=== PATIENT | male | born 1930 | race Caucasian/White ===

== ENCOUNTER 2016-11-14 13:09 | Observation (INO) | payer MEDICARE, OTHER ==
[2016-11-10 14:56] LABS: HEMATOCRIT 44.8 % (40.0-51.0); HEMOGLOBIN 14.8 g/dL (13.6-17.8)
[2016-11-10 15:14] LABS: CALCIUM, SERUM 8.8 MG/DL (8.5-10.4); CHLORIDE, SERUM 101 MMOL/L (96-112); CREATININE 1.21 MG/DL (0.70-1.30); GFR AFRICAN AMERICAN 63 ML/MIN (>=60); GFR NON AFRICAN AMERICAN 55 ML/MIN (>=60); GLUCOSE, SERUM 112 MG/DL (60-99); POTASSIUM, SERUM 4.8 MMOL/L (3.5-5.3); SODIUM, SERUM 141 MMOL/L (135-148)
[2016-11-10 15:15] LABS: BUN (BLOOD UREA NITROGEN) 31 MG/DL (6-23); CO2 (CARBON DIOXIDE) 35 MMOL/L (24-34)
--- NOTE | ~2016-11-14 | OP ---
Record Of Operation [facility] [address] [place]. [address] NAME: LORETTA MAY : 34 STATUS : DIS Halima PAT#: [id number] AGE: 86 ADM/REG DATE : 11/14/16 MR#: [id number] REPORT SERV DATE: 12/03/16 DICTATED BY: TARIQ MARCH DATE: 12/02/16 REPORT STATUS : Draft TRANSCRIBED BY: MODIván DATE: 12/02/16 DATE OF PROCEDURE: 11/14/2016 PREOPERATIVE DIAGNOSES: 1. High-grade right internal carotid artery obstruction. 2. 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 POSTOPERATIVE DIAGNOSIS: 1. 60% to 70% stenosis of the right internal carotid artery. 2. 95% stenosis of the left renal artery. PROCEDURE PERFORMED: 1. Arch aortogram with selective catheterization of the right common carotid artery with cervical carotid angiography. 2. Bilateral renal artery catheterization with arteriography. 3. Left renal artery angioplasty stent reconstruction with a 5 x 16 iCAST stent. SURGEON: Tariq March M.D. ANESTHESIA: Local MAC. COMPLICATIONS: None. INDICATION FOR PROCEDURE: Secondary to this very pleasant 86-year-old gentleman presenting with evidence of a high-grade right internal carotid artery obstruction with known significant cardiac history. Recommendations were made for carotid angiogram to help further define his carotid disease, potential for endovascular repair if found to be feasible. In addition, the patient had difficulties with significant hypertension. Recommendations were made for evaluation of the left renal artery secondary to critical disease. Consent was given. DETAILS OF PROCEDURE: The patient was brought to the endovascular operating room, placed in supine position, prepped and draped routine sterile fashion to the bilateral groin region. The right femoral artery was cannulated with a micropuncture needle followed by a wire and a sheath. Arteriogram was then placed. A universal flush catheter was advanced all the way to the arch of the aorta and 35- to 40-degree KOSTA arch arteriogram was then performed showing evidence of widely patent innominate left common carotid artery and left subclavian. The innominate was then cannulated with a Glidewire in the catheter. This was severe tortuosity and then with significant difficulty the catheter was then advanced to the common carotid artery. Arteriogram demonstrated a 60% to 70% stenosis of the right internal carotid artery region. Imaging was moderate to poor. Secondary to this, it was not possible for endovascular reconstruction secondary to technical concerns. Wires, catheters, and sheaths were then removed from the arch, and then a 6 x 45 sheath was then advanced over the wire to the renal and mesenteric level. The renal arteries were then interrogated and cannulated. The right renal arteries had zero blockage. The left had evidence of 95% obstruction, and a wire was then placed followed by a 4 x 2 angioplasty balloon. The stent Record Of [address] [address] NAME: LORETTA MAY : 34 STATUS : DIS Halima PAT#: [id number] AGE: 86 ADM/REG DATE : 11/14/16 MR#: [id number] REPORT SERV DATE: 12/03/16 DICTATED BY: TARIQ MARCH DATE: 12/02/16 REPORT STATUS : Draft TRANSCRIBED BY: MODL DATE: 12/02/16 was then passed into position and a 5 x 16 iCAST stent was deployed reconstructing the left renal artery. This completed, wires, catheters, and sheaths were then removed. The right groin was closed with Angio-Seal. The patient tolerated the procedure well. CL/MODL Tariq March M.D. / [id number] CC: Calvin Joshua
[~2016-11-14 13:09] MED LIST: ADVIL PO; ASAB PO; BETAPACE80 PO; C25 PO; C5 PO; CATPATCH1 TOP; COREG25 PO; DIOV160 PO; EXFORGE1 TA2 PO; FISH-EPA1000 MG PO; HARD NAILS PO; ISOSORB DIN30 MG PO; JANTOVEN2.5 MG PO; JANTOVEN5 MG PO; KLOR-CON M2020 MEQ PO; L20 PO; MEVACOR PO; NEUR100 PO; NORV5 PO; PRILO PO; PRILOSEC40 MG PO; PROSCAR5 PO; SLOW FE160 MG PO; T PO; TEKTUR150 PO; TENEX1 PO; TENEX2 MG PO; TRAZ50 PO; TRICOR145 PO; VITAMIN B-121000 MC1 SL; VOLTAREN1 % TOP; ZEBETA5 PO; ZESTRIL10 MG PO; ZOCOR20 PO
[2016-11-14 13:50] LABS: INTERNATIONAL NORMAL RATI 1.2 UNITS (-); PROTIME (NOT ORD) 14.6 SEC (12.0-14.5)
[2016-11-15 03:29] LABS: BASOPHILS 0.6 %; BASOPHILS ABSOLUTE 0.03 10/3/uL (0.0-0.16); EOSINOPHILS 3.2 %; EOSINOPHILS ABSOLUTE 0.15 10/3/uL (0.0-0.53); HEMOGLOBIN 13.2 g/dL (13.6-17.8); IMMATURE GRANULOCYTES 0.4 %; IMMATURE GRANULOCYTES ABSOLUTE 0.02 10/3/uL (0.0-0.11); LYMPHOCYTES 25.6 %; LYMPHOCYTES ABSOLUTE 1.21 10/3/uL (0.67-4.30); MEAN CORPUS HGB CONC 33.4 g/dL (32.0-36.0); MEAN CORPUSCULAR HEMOGLOB 33.4 pg (26.0-34.0); MEAN PLATELET VOLUME 10.3 fL (9.2-13.0); MONOCYTES 10.4 %; MONOCYTES ABSOLUTE 0.49 10/3/uL (0.21-1.20); NEUTROPHILS 59.8 %; NEUTROPHILS ABSOLUTE 2.83 10/3/uL (2.02-8.40); RBC DISTRIBUTION WIDTH 15.8 % (12.0-16.0); RED CELL COUNT 3.95 10/6/uL (4.7-6.1); WHITE BLOOD CELLS 4.7 10/3/uL (4.5-10.5)
[2016-11-15 03:32] LABS: HEMATOCRIT 39.5 % (40.0-51.0); MANUAL DIFF NO %; PLATELET COUNT 127 10/3/uL (150-400)
[2016-11-15 03:36] LABS: INTERNATIONAL NORMAL RATI 1.2 UNITS (-); PROTIME (NOT ORD) 14.7 SEC (12.0-14.5)
[2016-11-15 03:40] LABS: CALCIUM, SERUM 8.2 MG/DL (8.5-10.4); CHLORIDE, SERUM 106 MMOL/L (96-112); CO2 (CARBON DIOXIDE) 32 MMOL/L (24-34); GFR AFRICAN AMERICAN 91 ML/MIN (>=60); GFR NON AFRICAN AMERICAN 78 ML/MIN (>=60); SODIUM, SERUM 142 MMOL/L (135-148)
[2016-11-15 03:44] LABS: BUN (BLOOD UREA NITROGEN) 17 MG/DL (6-23); GLUCOSE, SERUM 172 MG/DL (60-99); POTASSIUM, SERUM 3.7 MMOL/L (3.5-5.3)
[2017-03-27] MEDS ORDERED: VICKS SINEX12 HR NAS (17:24)
[2017-03-31] MEDS ORDERED: C5 PO (14:54)
[2017-03-31] MEDS ORDERED: NORCO1 TA2 PO (14:54)
== END 2016-11-15 12:30 | disposition home or self-care (01) ==
LOC: SDC/OF 13:09 → CVICU 17:01
PROVIDERS: Specialist
PROC: 4A023N6 Measurement of Cardiac Sampling and Pressure, Right Heart, Percutaneous Approach (ICD-10-PCS; principal; 2016-11-14 16:00)
PROC: B204YZZ Plain Radiography of Right Heart using Other Contrast (ICD-10-PCS; 2016-11-14 16:00)
DX: I65.21 Occlusion and stenosis of right carotid artery (principal); I70.1 Atherosclerosis of renal artery; I10 Essential (primary) hypertension; G47.30 Sleep apnea, unspecified; E78.5 Hyperlipidemia, unspecified; Z95.1 Presence of aortocoronary bypass graft; Z88.0 Allergy status to penicillin
CPT/HCPCS: 36222; 36252; 37236; 80048; 82962; 83735; 85014; 85018; 85025; 85610; 93005; 96374; 96376; A9270-GY; C1725; C1760; C1769; C1874; C1887; C1894; G0378; J0360; J2370; J3010; Q9966